=== PATIENT | female | born 1960 | race Caucasian/White ===

== ENCOUNTER 2020-10-13 20:30 | Outpatient (CLI) | payer OTHER | END 2020-10-13 23:59 | disposition home or self-care (01) | LOC: D.MAMMO 20:30 | PROVIDERS: ATTEND Family Medicine | DX: Z12.31 Encounter for screening mammogram for malignant neoplasm of breast (principal) ==

== ENCOUNTER 2020-12-02 15:05 | Outpatient (CLI) | payer OTHER | END 2020-12-02 23:59 | disposition home or self-care (01) | LOC: D.MAMMO 15:05 | PROVIDERS: ATTEND Family Medicine | DX: R92.8 Other abnormal and inconclusive findings on diagnostic imaging of breast (principal) ==